=== PATIENT | female | born 1960 | race Caucasian/White ===

== ENCOUNTER 2023-04-08 10:03 | Emergency (ER) | payer BC ==
[~2023-04-08] VITALS: Ht 167.6 cm; Wt 109.0 kg
[2023-04-08 10:05] VITALS: O2SAT 100
[2023-04-08 10:52] LABS: BASOPHILS % 0.6 % (0.0-2.0); EOSINOPHILS % 0.9 % (0.0-5.0); HEMATOCRIT. 41.3 % (36.0-48.0); HEMOGLOBIN. 13.7 g/dL (12.0-16.0); MEAN CORPUSCULAR HEMOGLOBIN 29.2 pg (28.0-32.0); MEAN CORPUSCULAR HGB CONC 33.3 g/dL (31.0-37.0); MEAN CORPUSCULAR VOLUME 87.7 fL (81.0-99.0); MEAN PLATELET VOLUME 9.6 fl (7.4-10.4); MONOCYTES % 4.8 % (2.0-8.0); NEUTROPHILS % 49.7 % (40.0-76.0); PLATELET 255 x1000/uL (130-400); RED BLOOD CELL COUNT 4.71 mill/uL (4.2-5.4); RED CELL DISTRIBUTION WIDTH 14.5 % (11.6-14.6); WHITE BLOOD COUNT 7.2 x1000/uL (4.5-11.0)
[2023-04-08 11:13] LABS: ALANINE AMINOTRANSFERASE 27 IU/L (10-49); ALBUMIN 4.4 g/dL (3.2-4.8); ASPARTATE AMINOTRANSFERASE 31 IU/L (<34); BILIRUBIN TOTAL 0.4 mg/dL (0.1-1.0); CARBON DIOXIDE 26 mEq/L (21-32); CHLORIDE 105 mEq/L (98-107); CREATININE 0.9 mg/dL (0.6-1.0); GLUCOSE 97 mg/dL (70-105); POTASSIUM 3.7 mEq/L (3.5-5.1); PROTEIN TOTAL 7.5 g/dL (6.0-8.3); SODIUM 137 mEq/L (136-145); UREA NITROGEN BLOOD 12 mg/dL (9-23)
[2023-04-08 11:17] LABS: TROPONIN I HIGH SENSITIVITY < 4 ng/L (3.0-34)
[2023-04-08] MEDS: ASPIRIN 325MG EC TABLET PO ONE (11:27)
[2023-04-08 12:38] VITALS: BP 135/61; PULSE 62; RESP 14; TEMP 98
== END 2023-04-08 12:49 | disposition home or self-care (01) ==
LOC: ER 10:03 → CANBEDREQ 04-09 21:23
DX: R07.89 Other chest pain (principal)
CPT/HCPCS: 80053; 83880; 85025; 84484; 36415; 71045; 93005; 99285; Z7610 ×2